=== PATIENT | female | born 1935 | race Caucasian/White ===

== ENCOUNTER 2021-07-07 12:37 | Outpatient (CLI) | payer OTHER, MEDICARE, SELFPAY ==
[2021-07-07 13:02] VITALS: BMI 16.0
[2021-07-07 13:15] VITALS: BP 135/68; PULSE 93; RESP 20; TEMP 36.7; O2SAT 97
[2021-07-07 13:37] VITALS: BP 134/53; PULSE 87; RESP 20; TEMP 36.8; O2SAT 97
[2021-07-07 14:32] VITALS: BP 135/53; PULSE 89; RESP 20; TEMP 36.7; O2SAT 98
== END 2021-07-07 14:35 | disposition home or self-care (01) ==
LOC: OPS 12:43
PROVIDERS: PCP Physician Assistant; Visit Provider Nurse Practitioner Family
DX: U07.1 COVID-19 (principal)
CPT/HCPCS: 96365